=== PATIENT | male | born 1995 | race Caucasian/White ===

== ENCOUNTER 2017-07-04 13:37 | Emergency (ER) | payer OTHER ==
[2017-07-04] MEDS ORDERED: PENICILLIN G BENZATHINE 1,200,000 UNIT/2 ML SYRINGE IM STA (15:52)
--- NOTE | 2017-07-04 15:52 | ED ---
General Adult HPI - General Stated complaint: difficulty swallowing/sore throat Time Seen by Provider: 07/04/17 14:00 Source: RN notes reviewed - History of Present Illness Initial comments: This is a 21-year-old male who presents emergency Department complaining of a sore throat for 3 days. Patient states he also has a couple of open sores on his penis after he had shaved in that area and it got infected. Patient states she's had no fever or chills however his throat is been getting slightly worse every day. Patient states is no time in the day works better than any other. Patient has had no difficulty swallowing or breathing except for the fact that is painful to swallow. Patient denies any congestion patient denies any ear pain patient denies any headache patient denies any shortness of breath difficulty breathing. Patient denies any abdominal pain. - Related Data Previous Rx's Medication Instructions Recorded Cephalexin [Keflex] 500 mg PO Q6HR #28 cap 07/04/17 predniSONE 40 mg PO DAILY #8 tab 07/04/17 Allergies Allergy/AdvReac Type Severity Reaction Status Date / Time No Known Allergies Allergy Unverified 07/04/17 15:08 Review of Systems ROS Statement: Those systems with pertinent positive or pertinent negative responses have been documented in the HPI. ROS Other: All systems not noted in ROS Statement are negative. General Exam - General Exam Comments Initial Comments: GENERAL: Patient is well-developed and well-nourished. Patient is nontoxic and well- hydrated and is in no acute distress. ENT: Neck is soft and supple. No significant lymphadenopathy is noted. Patient's throat has erythematous tonsils and they appear to be swollen EYES: The sclera were anicteric and conjunctiva were pink and moist. Extraocular movements were intact and pupils were equal round and reactive to light. Eyelids were unremarkable. PULMONARY: Unlabored respirations. Good breath sounds bilaterally. No audible rales rhonchi or wheezing was noted. CARDIOVASCULAR: There is a regular rate and rhythm without any murmurs gallops or rubs. ABDOMEN: Soft and nontender with normal bowel sounds. No palpable organomegaly was noted. There is no palpable pulsatile mass. SKIN: There appears to be sore on the patient's penis that appears slightly erythematous around the margins. Patient states this is an area that he has been shaving and he keeps we irritating NEUROLOGIC: Patient is alert and oriented x3. Cranial nerves II through XII are grossly intact. Motor and sensory are also intact. Normal speech, volume and content. Symmetrical smile. MUSCULOSKELETAL: Normal extremities with adequate strength and full range of motion. No lower extremity swelling or edema. No calf tenderness. LYMPHATICS: No significant lymphadenopathy is noted PSYCHIATRIC: Normal psychiatric evaluation. Disposition Clinical Impression: Strep pharyngitis, Penile abrasion Disposition: HOME SELF-CARE Condition: Good Prescriptions: Cephalexin [Keflex] 500 mg PO Q6HR #28 cap predniSONE 40 mg PO DAILY #8 tab Referrals: None,Stated [Primary Care Provider] - 1-2 days Time of Disposition: 15:56
[2017-07-04 16:20] VITALS: BP 118/87; PULSE 87; RESP 18; TEMP 97.8
== END 2017-07-04 16:25 | disposition home or self-care (01) ==
LOC: EC 13:37
DX: S30.812A Abrasion of penis, initial encounter (principal); J02.0 Streptococcal pharyngitis; X58.XXXA Exposure to other specified factors, initial encounter
CPT/HCPCS: 99282; 96372; J0561

== ENCOUNTER 2017-12-11 16:17 | Emergency (ER) | payer OTHER ==
[2017-12-11 17:27] LABS: Basophils % (A) 0 %; Eosinophils # (A) 0.1 k/uL (0-0.7); Eosinophils % (A) 1 %; HCT 48.7 % (39.0-53.0); HGB 16.1 gm/dL (13.0-17.5); Lymphocytes # (A) 0.6 k/uL (1.0-4.8); Lymphocytes % (A) 4 %; MCH 30.7 pg (25.0-35.0); MCHC 33.1 g/dL (31.0-37.0); MCV 92.8 fL (80.0-100.0); Mean Platelet Volume 7.3; Monocytes # (A) 0.4 k/uL (0-1.0); Monocytes % (A) 3 %; Neutrophils # (A) 13.8 k/uL (1.3-7.7); Neutrophils % (A) 92 %; Platelet Count 268 k/uL (150-450); RBC 5.25 m/uL (4.30-5.90)
[2017-12-11 17:39] LABS: ALT 28 U/L (21-72); AST 28 U/L (17-59); Albumin 5.3 g/dL (3.5-5.0); Alkaline Phosphatase 101 U/L (38-126); Amylase 51 U/L (30-110); Anion Gap 19 mmol/L; Blood Urea Nitrogen 9 mg/dL (9-20); Calcium 10.7 mg/dL (8.4-10.2); Carbon Dioxide 21 mmol/L (22-30); Chloride 105 mmol/L (98-107); Glucose 160 mg/dL (74-99); Lipase 69 U/L (23-300); Potassium 3.7 mmol/L (3.5-5.1); Sodium 145 mmol/L (137-145); Total Bilirubin 1.4 mg/dL (0.2-1.3); Total Protein 8.4 g/dL (6.3-8.2)
[2017-12-11] MEDS ORDERED: KETOROLAC 30 MG/ML 1 ML VIAL IVP STA (17:54)
[2017-12-11] MEDS ORDERED: SODIUM CHLORIDE 0.9% 2,000 ML IV ONE (17:54)
[2017-12-11] MEDS ORDERED: FAMOTIDINE 20 MG/2 ML VIAL IV STA (17:54)
[2017-12-11] MEDS ORDERED: ONDANSETRON 4 MG/2 ML VIAL IVP STA (17:54)
--- NOTE | 2017-12-11 17:58 | ED ---
Abdominal Pain HPI - General Chief Complaint: Abdominal Pain Stated Complaint: Abd Pain, vomiting Time Seen by Provider: 12/11/17 17:47 Source: patient, RN notes reviewed Mode of arrival: ambulatory Limitations: no limitations - History of Present Illness Initial Comments: 22-year-old male present emergency department for chief complaint of nausea and vomiting. Patient states his symptoms started this morning is unable to keep anything down. He has no localized pain states that he feels better after he vomits but symptoms returned shortly after. Denies fever, chills, chest pain, shortness breath, headache or dizziness. Patient states that he's had contacts with similar symptoms they were given denies medication by the primary care physician and they felt better. Patient denies any dysuria no hematuria he's had no prior abdominal surgeries. - Related Data Home Medications Medication Instructions Recorded Confirmed Dramamine 1 tab PO DAILY PRN 12/11/17 12/11/17 Previous Rx's Medication Instructions Recorded Ondansetron Odt [Zofran Odt] 4 mg PO Q8HR PRN #14 tab 12/11/17 Allergies Allergy/AdvReac Type Severity Reaction Status Date / Time No Known Allergies Allergy Verified 12/11/17 17:55 Review of Systems ROS Statement: Those systems with pertinent positive or pertinent negative responses have been documented in the HPI. ROS Other: All systems not noted in ROS Statement are negative. Past Medical History Past Medical History: No Reported History History of Any Multi-Drug Resistant Organisms: None Reported Past Surgical History: No Surgical Hx Reported Past Psychological History: No Psychological Hx Reported Smoking Status: Never smoker Past Alcohol Use History: None Reported Past Drug Use History: None Reported General Exam Limitations: no limitations General appearance: alert, in no apparent distress Head exam: Present: atraumatic, normocephalic, normal inspection Eye exam: Present: normal appearance, PERRL, EOMI. Absent: scleral icterus, conjunctival injection, periorbital swelling ENT exam: Present: normal exam, mucous membranes moist Neck exam: Present: normal inspection, full ROM. Absent: tenderness, meningismus, lymphadenopathy Respiratory exam: Present: normal lung sounds bilaterally. Absent: respiratory distress, wheezes, rales, rhonchi, stridor Cardiovascular Exam: Present: regular rate, normal rhythm, normal heart sounds. Absent: systolic murmur, diastolic murmur, rubs, gallop, clicks GI/Abdominal exam: Present: soft, normal bowel sounds. Absent: distended, tenderness, guarding, rebound, rigid Back exam: Absent: CVA tenderness (R), CVA tenderness (L) Skin exam: Present: warm, dry, intact, normal color. Absent: rash Course Vital Signs 12/11/17 16:53 Temperature 97.0 F L Pulse Rate 69 Respiratory 24 Rate Blood Pressure 140/76 O2 Sat by Pulse 100 Oximetry Medical Decision Making - Medical Decision Making 22-year-old male present emergency department for nausea vomiting. Patient was given IV hydration, antiemetics had lab work performed. Patient states he feels much improved after medications and fluids. Patient has gastroenteritis she'll be discharged with Zofran he is advised to slowly increase his diet and return for any worsening symptoms. - Lab Data Result diagrams: 12/11/17 17:19 12/11/17 17:19 Lab Results 12/11/17 12/11/17 Range/Units 17:19 17:19 WBC 15.0 H (4.0-11.0) k/uL RBC 5.25 (4.30-5.90) m/uL Hgb 16.1 (13.0-17.5) gm/dL Hct 48.7 (39.0-53.0) % MCV 92.8 (80.0-100.0) fL MCH 30.7 (25.0-35.0) pg MCHC 33.1 (31.0-37.0) g/dL RDW 12.0 (11.5-15.5) % Plt Count 268 (150-450) k/uL Neutrophils % 92 % Lymphocytes % 4 % Monocytes % 3 % Eosinophils % 1 % Basophils % 0 % Neutrophils # 13.8 H (1.3-7.7) k/uL Lymphocytes # 0.6 L (1.0-4.8) k/uL Monocytes # 0.4 (0-1.0) k/uL Eosinophils # 0.1 (0-0.7) k/uL Basophils # 0.0 (0-0.2) k/uL Sodium 145 (137-145) mmol/L Potassium 3.7 (3.5-5.1) mmol/L Chloride 105 (98-107) mmol/L Carbon Dioxide 21 L (22-30) mmol/L Anion Gap 19 mmol/L BUN 9 (9-20) mg/dL Creatinine 0.90 (0.66-1.25) mg/dL Est GFR (MDRD) Af Amer >60 (>60 ml/min/1.73 sqM) Est GFR (MDRD) Non-Af >60 (>60 ml/min/1.73 sqM) Glucose 160 H (74-99) mg/dL Calcium 10.7 H (8.4-10.2) mg/dL Total Bilirubin 1.4 H (0.2-1.3) mg/dL AST 28 (17-59) U/L ALT 28 (21-72) U/L Alkaline Phosphatase 101 (38-126) U/L Total Protein 8.4 H (6.3-8.2) g/dL Albumin 5.3 H (3.5-5.0) g/dL Amylase 51 (30-110) U/L Lipase 69 (23-300) U/L Disposition Clinical Impression: Gastroenteritis Disposition: HOME SELF-CARE Condition: Stable Instructions: Gastroenteritis (ED) Additional Instructions: Please return to the Emergency Department if symptoms worsen or any other concerns. Prescriptions: Ondansetron Odt [Zofran Odt] 4 mg PO Q8HR PRN #14 tab PRN Reason: Nausea Referrals: None,Stated [Primary Care Provider] - 1-2 days Time of Disposition: 19:07
[2017-12-11 19:30] VITALS: BP 136/75; PULSE 72; RESP 20; TEMP 98.8
== END 2017-12-11 19:29 | disposition home or self-care (01) ==
LOC: EC 16:17
DX: K52.9 Noninfective gastroenteritis and colitis, unspecified (principal)
CPT/HCPCS: 36415; 80053; 82150; 83690; 85025; 99284; 96374; 96375 ×2; 96361; J2405; J1885

== ENCOUNTER 2018-03-09 02:02 | Emergency (ER) | payer OTHER ==
[2018-03-09 02:07] VITALS: TEMP 98.3
[2018-03-09] MEDS ORDERED: ONDANSETRON 4 MG/2 ML VIAL IVP STA (02:17)
[2018-03-09] MEDS ORDERED: SODIUM CHLORIDE 0.9% 1,000 ML IV STA (02:17)
--- NOTE | 2018-03-09 02:19 | ED ---
Abdominal Pain HPI - General Chief Complaint: Abdominal Pain Stated Complaint: vomiting Time Seen by Provider: 03/09/18 02:12 Source: patient Mode of arrival: ambulatory Limitations: no limitations - History of Present Illness Initial Comments: 22-year-old male patient presents to the emergency department today for complaints of vomiting and upper abdominal discomfort since noon yesterday. Patient states he has been unable to keep down any food or fluids. States that he has been vomiting approximately 4-5 times per hour. Patient states he is also expecting some upper abdominal discomfort in the midepigastric and right upper quadrant regions. He denies any fevers or chills with this. Denies any constipation or diarrhea. Patient denies any sick contacts or recent travel. Denies any new medications.Patient denies any recent rash, shortness breath, chest pain, back pain, numbness, tingling, dizziness, weakness, hematuria, dysuria, urinary urgency, urinary frequency, headache, visual changes, or any other complaints. - Related Data Home Medications Medication Instructions Recorded Confirmed Dramamine 1 tab PO DAILY PRN 12/11/17 12/11/17 Previous Rx's Medication Instructions Recorded Ondansetron Odt [Zofran Odt] 4 mg PO Q8HR PRN #14 tab 12/11/17 Ondansetron [Zofran ODT] 4 mg PO Q8HR PRN #10 tab 03/09/18 Allergies Allergy/AdvReac Type Severity Reaction Status Date / Time No Known Allergies Allergy Verified 03/09/18 02:07 Review of Systems ROS Statement: Those systems with pertinent positive or pertinent negative responses have been documented in the HPI. ROS Other: All systems not noted in ROS Statement are negative. Past Medical History Past Medical History: No Reported History History of Any Multi-Drug Resistant Organisms: None Reported Past Surgical History: No Surgical Hx Reported Past Psychological History: No Psychological Hx Reported Smoking Status: Never smoker Past Alcohol Use History: None Reported Past Drug Use History: None Reported General Exam Limitations: no limitations General appearance: alert, in no apparent distress, other (This is a well- developed, well-nourished adult male patient in no acute distress. Vital signs upon presentation are temperature 98.3F, pulse 72, respirations 20, blood pressure 139/78, pulse ox 100% on room air.) Eye exam: Present: normal appearance, PERRL, EOMI. Absent: scleral icterus, conjunctival injection, periorbital swelling ENT exam: Present: normal exam, normal oropharynx, mucous membranes moist Respiratory exam: Present: normal lung sounds bilaterally. Absent: respiratory distress, wheezes, rales, rhonchi, stridor Cardiovascular Exam: Present: regular rate, normal rhythm, normal heart sounds. Absent: systolic murmur, diastolic murmur, rubs, gallop, clicks GI/Abdominal exam: Present: soft, tenderness (Midepigastric, right upper quadrant tenderness), normal bowel sounds. Absent: distended, guarding, rebound , rigid Neurological exam: Present: alert, oriented X3, CN II-XII intact Psychiatric exam: Present: normal affect, normal mood Skin exam: Present: warm, dry, intact, normal color. Absent: rash Course Vital Signs 03/09/18 02:05 Temperature 98.3 F Pulse Rate 72 Respiratory 20 Rate Blood Pressure 139/78 O2 Sat by Pulse 100 Oximetry Medical Decision Making - Medical Decision Making 22-year-old male patient presents to the emergency department today for complaints of vomiting upper abdominal pain. Physical examination is unremarkable. Abdomen is soft and nontender. Patient did have slight elevation in his blood glucose level, this visit was in the 130s and the last visit was in the 160s without eating or drinking several hours prior. I did check an acetone which was negative. Results were discussed with the patient. He was given recommendation for follow-up with the primary care physician both for recheck and to discuss elevated blood sugars. Patient is feeling much improved upon reevaluation after receiving fluids and nausea medication here in the department. He states his abdominal pain is completely resolved. I feel his symptoms are related to gastroenteritis. Return parameters were discussed in detail. He verbalizes understanding and agrees with this plan. - Lab Data Result diagrams: 03/09/18 02:15 03/09/18 02:15 Lab Results 03/09/18 03/09/18 03/09/18 Range/Units 02:15 02:15 02:15 WBC 14.9 H (4.0-11.0) k/uL RBC 5.68 (4.30-5.90) m/uL Hgb 17.6 H (13.0-17.5) gm/dL Hct 50.8 (39.0-53.0) % MCV 89.5 (80.0-100.0) fL MCH 31.0 (25.0-35.0) pg MCHC 34.7 (31.0-37.0) g/dL RDW 12.2 (11.5-15.5) % Plt Count 258 (150-450) k/uL Neutrophils % 88 % Lymphocytes % 7 % Monocytes % 4 % Eosinophils % 0 % Basophils % 0 % Neutrophils # 13.1 H (1.3-7.7) k/uL Lymphocytes # 1.0 (1.0-4.8) k/uL Monocytes # 0.6 (0-1.0) k/uL Eosinophils # 0.0 (0-0.7) k/uL Basophils # 0.0 (0-0.2) k/uL Sodium 143 (137-145) mmol/L Potassium 4.3 (3.5-5.1) mmol/L Chloride 103 (98-107) mmol/L Carbon Dioxide 21 L (22-30) mmol/L Anion Gap 19 mmol/L BUN 14 (9-20) mg/dL Creatinine 0.80 (0.66-1.25) mg/dL Est GFR (CKD-EPI)AfAm >90 (>60 ml/min/1.73 sqM) Est GFR (CKD-EPI)NonAf >90 (>60 ml/min/1.73 sqM) Glucose 136 H (74-99) mg/dL Calcium 10.8 H (8.4-10.2) mg/dL Total Bilirubin 1.6 H (0.2-1.3) mg/dL AST 35 (17-59) U/L ALT 53 (21-72) U/L Alkaline Phosphatase 88 (38-126) U/L Total Protein 8.8 H (6.3-8.2) g/dL Albumin 5.5 H (3.5-5.0) g/dL Amylase 62 (30-110) U/L Lipase 92 (23-300) U/L Acetone, Qual Negative (Negative) Disposition Clinical Impression: Gastroenteritis Disposition: HOME SELF-CARE Condition: Good Instructions: Gastroenteritis (ED) Additional Instructions: Take medications as directed. Start with clear liquid diet and advance as tolerated. Follow-up through primary care physician for recheck in 1-2 days. Discussed elevated blood sugars. Return here immediately for any new, worsening , or concerning symptoms. Prescriptions: Ondansetron [Zofran ODT] 4 mg PO Q8HR PRN #10 tab PRN Reason: Nausea Is patient prescribed a controlled substance at d/c from ED?: No Referrals: None,Stated [Primary Care Provider] - 1-2 days Time of Disposition: 03:18
[2018-03-09 02:33] LABS: ALT 53 U/L (21-72); AST 35 U/L (17-59); Albumin 5.5 g/dL (3.5-5.0); Alkaline Phosphatase 88 U/L (38-126); Amylase 62 U/L (30-110); Anion Gap 19 mmol/L; Blood Urea Nitrogen 14 mg/dL (9-20); Calcium 10.8 mg/dL (8.4-10.2); Carbon Dioxide 21 mmol/L (22-30); Chloride 103 mmol/L (98-107); Glucose 136 mg/dL (74-99); Lipase 92 U/L (23-300); Potassium 4.3 mmol/L (3.5-5.1); Sodium 143 mmol/L (137-145); Total Bilirubin 1.6 mg/dL (0.2-1.3); Total Protein 8.8 g/dL (6.3-8.2)
[2018-03-09 03:05] LABS: Basophils % (A) 0 %; Eosinophils % (A) 0 %; HCT 50.8 % (39.0-53.0); HGB 17.6 gm/dL (13.0-17.5); Lymphocytes % (A) 7 %; MCHC 34.7 g/dL (31.0-37.0); MCV 89.5 fL (80.0-100.0); Mean Platelet Volume 6.8; Monocytes # (A) 0.6 k/uL (0-1.0); Monocytes % (A) 4 %; Neutrophils # (A) 13.1 k/uL (1.3-7.7); Neutrophils % (A) 88 %; Platelet Count 258 k/uL (150-450); RBC 5.68 m/uL (4.30-5.90); RDW 12.2 % (11.5-15.5); WBC 14.9 k/uL (4.0-11.0)
[2018-03-09] MEDS ORDERED: ONDANSETRON 4 MG ODT STARTER PACK 2 TAB BTL PO STA (03:17)
[2018-03-09 03:41] VITALS: BP 138/73; PULSE 57; RESP 18
== END 2018-03-09 03:41 | disposition home or self-care (01) ==
LOC: EC 02:02
DX: K52.9 Noninfective gastroenteritis and colitis, unspecified (principal); R73.9 Hyperglycemia, unspecified
CPT/HCPCS: 36415; 80053; 82150; 82009; 83690; 85025; 99284; 96374; 96361; J2405; S0119